=== PATIENT | male | born 1980 | race Caucasian/White ===

== ENCOUNTER 2018-11-28 13:47 | Emergency (ER) | payer OTHER ==
[~2018-11-28] VITALS: Ht 182 cm; Wt 93.0 kg
[2018-11-28 15:47] VITALS: BP 104/63
== END 2018-11-28 16:01 | disposition home or self-care (01) ==
LOC: ER 13:47
DX: S63.591A Other specified sprain of right wrist, initial encounter (principal); W01.0XXA Fall on same level from slipping, tripping and stumbling without subsequent striking against object, initial encounter; Y92.002 Bathroom of unspecified non-institutional (private) residence as the place of occurrence of the external cause; Y93.02 Activity, running; Y99.8 Other external cause status